=== PATIENT | female | born 1985 | race African-American/Black ===

== ENCOUNTER 2018-05-30 03:14 | Emergency (ER) | payer OTHER, MEDICAID ==
[~2018-05-30] VITALS: Ht 162.6 cm; Wt 45.4 kg
[2018-05-30 03:20] VITALS: BP_SYST 107
--- NOTE | 2018-05-30 03:20 | NUR ---
Placed in room 8 . Placed on vice president financial, blood pressure machine and pulse oximeter. To gown for exam. Side rails up. Report given to Debby KLINE.
--- NOTE | 2018-05-30 03:22 | NUR ---
Pt is alert/oriented. C/O sharp, non-radiating chest pain, 10/10. Denies any N/V/D. RR even and unlabored. SR noted on monitor. No signs of SOB or acute distress noted. Will continue to monitor.
--- NOTE | 2018-05-30 03:26 | NUR ---
ER Dr. Enrique at bedside examining patient.
[2018-05-30] MEDS ORDERED: NACL 0.9% 1,000 ML IV ONE (03:34)
[2018-05-30] MEDS ORDERED: HYDROmorphone 1 MG INJ. 1 MG/ML AMPUL IVP ONE (03:45)
[2018-05-30] MEDS ORDERED: DIPHENHYDRAMINE INJ 50 MG/ML VIAL IVP ONE ×2 (03:45→05:45)
[2018-05-30] MEDS ORDERED: ASPIRIN 81 MG TAB.CHEW PO ONE ×2 (03:45)
[2018-05-30] MEDS ORDERED: CALC-823 PO (03:49)
[2018-05-30] MEDS ORDERED: LEVE500T9 PO (03:49)
[2018-05-30] MEDS ORDERED: VITD400 PO (03:49)
[2018-05-30] MEDS ORDERED: PHO667 PO (03:49)
--- NOTE | 2018-05-30 03:49 | NUR ---
Medication reconciliation completed with information provided by patient. Any prior medication reconciliation on file was reviewed and corrected.
[2018-05-30 04:51] LABS: BASOPHILS % (AUTO) 0.9 % (0.0-2.0); EOSINOPHILS # (AUTO) 0.2 K/uL (0.0-0.4); EOSINOPHILS % (AUTO) 5.4 % (0.0-4.0); HEMATOCRIT 28.6 % (36-48); HEMOGLOBIN 9.4 g/dL (12.0-16.0); LYMPHOCYTES # (AUTO) 0.9 K/uL (1.0-5.5); LYMPHOCYTES % (AUTO) 23.6 % (20.5-51.5); MEAN CORPUSCULAR HEMOGLOBIN 32 pg (27-31); MEAN CORPUSCULAR HGB CONC 33 % (32-36); MEAN CORPUSCULAR VOLUME 96 fL (79.0-98.0); MONOCYTES # (AUTO) 0.2 K/uL (0.0-1.0); MONOCYTES % (AUTO) 5.4 % (1.7-9.3); NEUTROPHILS # (AUTO) 2.4 K/uL (1.8-7.7); PLATELET COUNT (AUTO) 174 K/uL (130-430); RED BLOOD CELL COUNT(AUTO) 2.97 MIL/uL (4.2-6.2); RED CELL DISTRIBUTION WIDTH 19.4 % (9.0-15.0); WHITE BLOOD COUNT (AUTO) 3.7 K/uL (4.8-10.8)
[2018-05-30 04:57] LABS: CALCIUM 7.1 mg/dL (8.4-11.0); POTASSIUM 3.9 mmol/L (3.5-5.1)
[2018-05-30 05:03] LABS: ALBUMIN 3.1 g/dL (3.4-4.8); TOTAL BILIRUBIN 0.4 mg/dL (0.0-1.0)
[2018-05-30 05:06] LABS: CREATININE 6.86 mg/dL (0.55-1.30); INR 1.1 (0.8-1.2); PROTHROMBIN TIME 10.9 SECS (9.5-12.5)
--- NOTE | 2018-05-30 05:19 | NUR ---
Pt resting in bed, VSS. No signs of SOB or acute distress noted. Will continue to monitor.
--- NOTE | 2018-05-30 05:21 | NUR ---
ER at bedside re-examining patient.
[2018-05-30 05:45] LABS: NEUTROPHILS % (AUTO) 64.7 % (40.0-70.0)
[2018-05-30 07:05] VITALS: BP_SYST 114
--- NOTE | 2018-05-30 07:05 | NUR ---
Patient given written and verbal discharge instructions and verbalizes understanding. ER MD Enrique discussed with patient the results and treatment provided. Patient in stable condition. ID arm band removed. IV catheter removed intact and dressing applied, no active bleeding. Rx of Prednison and Atarax given. Patient educated on pain management and to follow up with PMD. Pain Scale 0/10. Opportunity for questions provided and answered. Medication side effect fact sheet provided. Pt declined to take discharge paper work.
== END 2018-05-30 07:05 | disposition home or self-care (01) ==
LOC: SED 03:14
DX: R07.89 Other chest pain (principal); I12.0 Hypertensive chronic kidney disease with stage 5 chronic kidney disease or end stage renal disease; N18.6 End stage renal disease; M32.9 Systemic lupus erythematosus, unspecified; Z99.2 Dependence on renal dialysis; Z88.6 Allergy status to analgesic agent; Z79.899 Other long term (current) drug therapy
CPT/HCPCS: 36415; 71045; 80053; 82150; 82550; 83690; 84484; 85025; 85610; 85730; 93005; 96361; 96374; 96375; 96376; 99285; J1170; J1200; J7030